=== PATIENT | female | born 1990 | race Caucasian/White ===

== ENCOUNTER 2018-03-24 12:46 | Inpatient (IN) | payer MEDICAID ==
[2018-03-24] MEDS ORDERED: METHYLERGONOVINE 0.2 MG INJ IM ×3 (13:30→21:00)
[2018-03-24] MEDS ORDERED: MISOPROSTOL 200 MCG TAB PR ×3 (13:30→21:00)
[2018-03-24] MEDS ORDERED: OXYTOCIN 30 UNITS/LR 500 ML IV ×5 (13:30→21:00)
[2018-03-24] MEDS ORDERED: CARBOPROST 250 MCG INJ IM ×3 (13:30→21:00)
[2018-03-24] MEDS ORDERED: CEFAZOLIN 2 GM/50 ML (PMX) 50 ML IVPB (13:30)
[2018-03-24 13:56] LABS: ADD MAN DIFF? NO
[2018-03-24 13:58] LABS: ABNORMAL IP MESSAGE 1; BASOPHILS % 0.4 % (0.0-2.0); EOSINOPHILS # 0.1 10^3/ul (0.0-0.5); EOSINOPHILS % 0.7 % (0.0-7.0); HEMATOCRIT 36.3 % (37.0-47.0); HEMOGLOBIN 12.1 g/dl (12.0-16.0); LYMPHOCYTES # 1.4 10^3/ul (0.8-2.9); LYMPHOCYTES % 19.2 % (15.0-51.0); MEAN CORPUSCULAR HEMOGLOBIN 28.7 pg (29.0-33.0); MEAN CORPUSCULAR HGB CONC 33.3 g/dl (32.0-37.0); MEAN PLATELET VOLUME 13.4 fl (7.4-10.4); MONOCYTE # 0.6 10^3/ul (0.3-0.9); NEUTROPHILS % 70.3 % (39.0-77.0); PLATELET COUNT 128 10^3/UL (140-415); RED BLOOD COUNT 4.22 10^6/ul (4.20-5.40); RED CELL DISTRIBUTION WIDTH 13.6 % (11.5-14.5)
[2018-03-24 13:58] LABS: WHITE BLOOD COUNT 7.1 10^3/ul (4.8-10.8)
[2018-03-24 13:59] LABS: POSITIVE DIFF @See below
[2018-03-24 14:18] LABS: INR 0.89; PARTIAL THROMBOPLASTIN TIME 27.9 Sec (23.0-35.0); PROTIME 12.1 Sec (11.9-14.9); PT RATIO 0.9
[2018-03-24] MEDS: LACTATED RINGER'S 1,000 ML IV ×2 (14:47)
[2018-03-24] MEDS ORDERED: CITRIC ACID/NA CITRATE 30 ML CUP (14:49)
[2018-03-24] MEDS ORDERED: morphine SULFATE/PF (10 MG/10 ML) INJ (14:50)
[2018-03-24] MEDS ORDERED: FENTAnyl 50 MCG/ML VIAL (14:50)
[2018-03-24 14:51] LABS: HEPATITIS B SURFACE ANTIGEN NEGATIVE (NEGATIVE)
[2018-03-24] MEDS ORDERED: DEXAMETHASONE 4 MG/ML 1 ML INJ (14:52)
[2018-03-24] MEDS: ONDANSETRON 4 MG INJ IV ×2 (15:00→15:02)
[2018-03-24] MEDS: CITRIC ACID/NA CITRATE 30 ML CUP PO ×2 (15:00→15:02)
[2018-03-24] MEDS ORDERED: DIPHENHYDRAMINE 50 MG INJ IV (16:30)
[2018-03-24] MEDS ORDERED: NALOXONE (0.4 MG/ML) INJ IV (16:30)
[2018-03-24] MEDS ORDERED: ZOLPIDEM 5 MG TAB PO (16:30)
[2018-03-24] MEDS ORDERED: HYDROmorphONE 0.5 MG/0.5 ML SYG IV ×2 (16:30)
[2018-03-24] MEDS ORDERED: ONDANSETRON 4 MG INJ IV (16:30)
[2018-03-24] MEDS: OXYTOCIN 30 UNITS/LR 500 ML IV ×3 (17:55→22:43)
[2018-03-24 20:53] LABS: RAPID PLASMA REAGIN NONREACTIVE (NR)
[2018-03-24] MEDS ORDERED: IBUPROFEN 600 MG TAB PO (21:00)
[2018-03-24] MEDS ORDERED: HYDROCODONE/APAP (5/325) TAB PO ×4 (21:00)
[2018-03-24] MEDS ORDERED: LANOLIN 7 GM TUBE TOP (21:00)
[2018-03-24] MEDS ORDERED: CEFAZOLIN 1 GM/50 ML (PMX) 50 ML IVPB (21:00)
[2018-03-24] MEDS ORDERED: OXYCODONE/ACETAMINOPHEN (5/325) TAB PO ×2 (21:00)
[2018-03-24] MEDS ORDERED: SENNA/DOCUSATE NA (8.6MG/50MG) TAB PO (21:00)
[2018-03-24] MEDS: SENNA/DOCUSATE NA (8.6MG/50MG) TAB PO (22:02)
[2018-03-24] MEDS: CEFAZOLIN 1 GM/50 ML (PMX) 50 ML IVPB (23:13)
[2018-03-25] MEDS: LANOLIN 7 GM TUBE TOP (00:01)
[2018-03-25] MEDS: OXYTOCIN 30 UNITS/LR 500 ML IV ×5 (04:29→16:42)
[2018-03-25 08:07] LABS: ADD MAN DIFF? NO
[2018-03-25 08:09] LABS: ABNORMAL IP MESSAGE 1; BASOPHILS % 0.2 % (0.0-2.0); EOSINOPHILS % 0.2 % (0.0-7.0); HEMATOCRIT 32.5 % (37.0-47.0); HEMOGLOBIN 10.8 g/dl (12.0-16.0); LYMPHOCYTES # 1.4 10^3/ul (0.8-2.9); LYMPHOCYTES % 13.5 % (15.0-51.0); MEAN CORPUSCULAR HEMOGLOBIN 28.3 pg (29.0-33.0); MEAN CORPUSCULAR HGB CONC 33.2 g/dl (32.0-37.0); MEAN CORPUSCULAR VOLUME 85.3 fl (82.0-101.0); MEAN PLATELET VOLUME 13.9 fl (7.4-10.4); MONOCYTE # 0.7 10^3/ul (0.3-0.9); MONOCYTES % 6.9 % (0.0-11.0); NEUTROPHIL # 8.2 10^3/ul (1.6-7.5); PLATELET COUNT 115 10^3/UL (140-415); RED BLOOD COUNT 3.81 10^6/ul (4.20-5.40); RED CELL DISTRIBUTION WIDTH 13.6 % (11.5-14.5)
[2018-03-25 08:09] LABS: WHITE BLOOD COUNT 10.4 10^3/ul (4.8-10.8)
[2018-03-25 08:11] LABS: POSITIVE DIFF @See below
[2018-03-25] MEDS: LACTATED RINGER'S 1,000 ML IV (09:27)
[2018-03-25] MEDS: SENNA/DOCUSATE NA (8.6MG/50MG) TAB PO ×2 (11:45→21:41)
[2018-03-25] MEDS: INFLUENZA VIRUS VACCINE 0.5 ML (DISPENSING) IM* (11:46)
[2018-03-25] MEDS: KETOROLAC 30 MG INJ IV (15:27)
[2018-03-25] MEDS ORDERED: IBUPROFEN 600 MG TAB PO ×2 (18:00)
[2018-03-25] MEDS: OXYCODONE/ACETAMINOPHEN (5/325) TAB PO (18:46)
[2018-03-26] MEDS: OXYCODONE/ACETAMINOPHEN (5/325) TAB PO ×2 (08:34)
[2018-03-26] MEDS: SENNA/DOCUSATE NA (8.6MG/50MG) TAB PO ×2 (08:34→21:16)
[2018-03-26] MEDS: IBUPROFEN 600 MG TAB PO ×2 (12:19→18:42)
[2018-03-27] MEDS: IBUPROFEN 600 MG TAB PO ×2 (01:03→08:29)
[2018-03-27] MEDS: SENNA/DOCUSATE NA (8.6MG/50MG) TAB PO (08:29)
[2018-03-27] MEDS: DIPHTH/TET/ACEL PERTUSS (ADULT) 0.5 ML VIAL IM* (10:25)
[2018-03-27] MEDS: NA PHOSPHATE/BIPHOS 133 ML ENEMA PR (11:21)
== END 2018-03-27 13:30 | disposition home or self-care (01) | DRG 785 ==
LOC: L-D 12:46 → PP1 20:12
PROVIDERS: Obstetrics & Gynecology
PROC: 10D00Z1 Extraction of Products of Conception, Low, Open Approach (ICD-10-PCS; principal; 2018-03-24)
PROC: 0UB70ZZ Excision of Bilateral Fallopian Tubes, Open Approach (ICD-10-PCS; 2018-03-24)
DX: O34.219 Maternal care for unspecified type scar from previous cesarean delivery (principal); Z3A.39 39 weeks gestation of pregnancy; Z37.0 Single live birth; Z30.2 Encounter for sterilization; Z23 Encounter for immunization
CPT/HCPCS: 85025; 85610; 85730; 86592; 86850; 86900; 86901; 87340; 88302; 90686; 90715; 99464